=== PATIENT | male | born 1955 | race Caucasian/White ===

== ENCOUNTER → 2018-04-04 08:09 | Outpatient (CLI) | payer BC, SELFPAY ==
--- NOTE | 2018-04-04 15:11 | PFTCOMP ---
COMPLETE PULMONARY FUNCTION TEST INTERPRETATION Brief HPI: Patient is a 62 year old male, currently under the care of myself, who presents to [facility] for complete pulmonary function tests secondary to diagnosis of COPD. Respiratory therapist reports good effort and reproducible results. Interpretation: Forced expiration spirometry shows a moderate large airways obstructive ventilatory defect with an FEV1 of 74% predicted. There is no significant bronchodilator response by ATS criteria. Spirograms are of good quality and plateau slowly, indicating slowly emptying areas of the lungs. The respiratory flow volume loop shows decreased expiratory flow rates at all lung volumes consistent with airway obstruction. Lung volumes by body plethysmography show a normal total lung capacity at 7.77 L, 104% predicted. All other lung volumes are within normal limits. Diffusion capacity by carbon monoxide is normal at 83% predicted. The airway resistance is elevated. Compared to previous pulmonary function tests from 04/06/2017, there has been no significant change. Impression: Irreversible moderate large airways obstructive ventilatory defect with no significant private branch exchange service advisor the last year.
--- NOTE | 2018-04-04 15:14 | PFTCOMP_ITS ---
COMPLETE PULMONARY FUNCTION TEST INTERPRETATION Brief HPI: Patient is a 62 year old male, currently under the care of myself, who presents to [facility] for complete pulmonary function tests secondary to diagnosis of COPD. Respiratory therapist reports good effort and reproducible results. Interpretation: Forced expiration spirometry shows a moderate large airways obstructive ventilatory defect with an FEV1 of 74% predicted. There is no significant bronchodilator response by ATS criteria. Spirograms are of good quality and plateau slowly, indicating slowly emptying areas of the lungs. The respiratory flow volume loop shows decreased expiratory flow rates at all lung volumes consistent with airway obstruction. Lung volumes by body plethysmography show a normal total lung capacity at 7.77 L, 104% predicted. All other lung volumes are within normal limits. Diffusion capacity by carbon monoxide is normal at 83% predicted. The airway resistance is elevated. Compared to previous pulmonary function tests from 04/06/2017, there has been no significant change. Impression: Irreversible moderate large airways obstructive ventilatory defect with no significant plant changer the last year.
== END ==
PROVIDERS: Referring Provider Nurse Practitioner Acute Care; Visit Provider Nurse Practitioner Acute Care
DX: J44.9 Chronic obstructive pulmonary disease, unspecified (principal)
CPT/HCPCS: 94060; 94726; 94729

== ENCOUNTER → 2019-01-16 | Outpatient (CLI) | payer BC, SELFPAY ==
[2018-10-26 08:42] VITALS: BMI 26.4
[2019-01-16 10:37] LABS: Absolute Lymphocyte Count 1.85 X10^3/ul (0.83-4.51); Absolute Neutrophil Count 3.1 X10^3/uL (2.0-7.7); Basophil# 0.02 X10^3/uL; Basophil% 0.3 % (0-1); Eosinophils% 1.7 % (0-5); Hematocrit 46.7 % (40-54); Hemoglobin 15.7 g/dl (13.0-16.5); Lymphocyte # 1.85 X10^3/ul (4.0); Mean Corp Hgb Conc 33.6 g/gl (32-36); Mean Corpuscular Hgb 30.6 pg (27.0-32.0); Mean Platelet Vol. 10.2 fl (6.2-12.0); Monocyte% 12.1 % (0-10); Neutrophil # 3.11 X10^3/uL (2.7-7.7); Neutrophil % 53.7 % (47-70); Platelet Count 218 K/mm3 (150-450); RBC Distribution Width CV 12.9 % (11.6-14.6); RBC Distribution Width SD 42.9 fl (35.1-43.9); Red Blood Count 5.13 M/mm3 (4.6-6.2); White Blood Count 5.8 K/mm3 (4.4-11.0)
[2019-01-16 10:38] LABS: POSITIVE COUNT NO; POSITIVE DIFFERENTIAL NO; POSITIVE MORPHOLOGY NO
[2019-01-16 10:44] LABS: International Normalized Ratio 1.1; Prothrombin Time (Protime)PT. 13.6 SECONDS (11.7-14.9)
[2019-01-16 10:45] LABS: Partial Thromboplast Time 32.3 Seconds (24.1-36.2)
[2019-01-16 11:09] LABS: ALB/GLOB Ratio 1.1 RATIO (0.9-2.4); AST(SGOT) 25 U/L (15-37); Alanine Aminotransfer ALT/SGPT 42 U/L (16-61); Albumin, Serum 4.1 g/dL (3.2-5.0); Alkaline Phosphatase 55 U/L (45-117); Anion Gap 7 (5-15); BUN 20 mg/dL (7-18); BUN/Creat Ratio 18.7 RATIO (10-20); Calcium,Total 9.1 mg/dL (8.5-10.1); Chloride 102 mmol/L (98-107); Creatinine, Serum 1.07 mg/dL (0.70-1.30); EST Glomerular Filtration Rate 75 mL/min (>60); Est Glom Filt Rate - Afr Amer 90 mL/min (>60); Globulin 3.7 g/dL (2.2-4.2); Glucose 97 mg/dL (74-106); Potassium 4.2 mmol/L (3.5-5.1); Protein, Total 7.8 g/dL (6.4-8.2); Sodium Level 137 mmol/L (136-145)
== END | disposition home or self-care (01) ==
LOC: MTLAB 08:55
PROVIDERS: Referring Provider Internal Medicine Gastroenterology; Visit Provider Internal Medicine Gastroenterology
DX: K74.60 Unspecified cirrhosis of liver (principal); B19.20 Unspecified viral hepatitis C without hepatic coma
CPT/HCPCS: 36415; 80053; 85025; 85610; 85730

== ENCOUNTER → 2019-03-30 | Outpatient (CLI) | payer BC, SELFPAY ==
[2018-10-26 08:42] VITALS: BMI 26.4
--- NOTE | 2019-03-31 08:18 | PFT ---
INTRODUCTION: The patient is a 63-year-old male that presents for pulmonary function studies secondary to a diagnosis of COPD. Respiratory therapy reports good patient effort. Bronchodilators were used during testing. INTERPRETATION: Forced expiration spirometry demonstrates the presence of a mild large airways obstructive ventilatory defect. There was no significant response to aerosolized bronchodilators. Spirograms are of good quality and do not plateau indicating slow emptying of the lungs. Body plethysmography was performed and reveals an elevated TLC and RV, indicative of underlying hyperinflation and air trapping. Diffusing capacity by single breath CO is preserved at 94% of predicted. IMPRESSION: Irreversible mild large airways obstructive ventilatory defect with associated hyperinflation and air trapping.
== END | disposition home or self-care (01) ==
LOC: PSN 10:02
PROVIDERS: Referring Provider Nurse Practitioner Acute Care; Visit Provider Nurse Practitioner Acute Care
DX: J44.9 Chronic obstructive pulmonary disease, unspecified (principal)
CPT/HCPCS: 94060; 94726; 94729

== ENCOUNTER → 2019-11-13 13:22 | Outpatient (CLI) | payer BC, SELFPAY ==
[2019-11-06 07:46] VITALS: BMI 27.7
== END ==
PROVIDERS: Referring Provider Nurse Practitioner Acute Care; Visit Provider Nurse Practitioner Acute Care
DX: G47.30 Sleep apnea, unspecified (principal)
CPT/HCPCS: 95806

== ENCOUNTER → 2019-12-14 13:00 | Outpatient (CLI) | payer BC, SELFPAY ==
[2019-11-06 07:46] VITALS: BMI 27.7
== END ==
PROVIDERS: Referring Provider Nurse Practitioner Acute Care; Visit Provider Nurse Practitioner Acute Care
DX: Z00.00 Encounter for general adult medical examination without abnormal findings (principal)

== ENCOUNTER → 2019-12-15 06:14 | Outpatient (CLI) | payer BC, SELFPAY ==
[2019-11-06 07:46] VITALS: BMI 27.7
== END ==
PROVIDERS: Referring Provider Nurse Practitioner Acute Care; Visit Provider Nurse Practitioner Acute Care
DX: Z00.00 Encounter for general adult medical examination without abnormal findings (principal)

== ENCOUNTER 2020-04-05 16:06 | Inpatient (IN) | payer BC, SELFPAY ==
[2020-01-09 08:08] VITALS: BMI 27.9
[2020-04-05] VITALS (7 sets, daily range): BP systolic 40–166; BP diastolic 17–105; PULSE 45–176; RESP 14–30; TEMP 36.2; O2SAT 33–100; BMI 33.2
--- NOTE | 2020-04-05 16:07 | CPS ---
pt came in full arrest with squad doing CPR, pt had LMA in until [address] Leonard intubated with good color change on CO2 detector, ET tube was secured by R.T. pt was bagged with 100% O2 via ambu bag until in [employer] where he was placed on a Ventilator with settings from Dr Godinez.
--- NOTE | 2020-04-05 16:23 | EKG12_ITS ---
Test Reason : CODE BLUE Blood Pressure : / mmHG Vent. Rate : 174 BPM Atrial Rate : 192 BPM P-R Int : 000 ms QRS Dur : 186 ms QT Int : 268 ms P-R-T Axes : 000 210 072 degrees QTc Int : 456 ms Atrial fibrillation with rapid ventricular response with premature ventricular or aberrantly conducte d complexes Right superior axis deviation Non-specific intra-ventricular conduction block Abnormal ECG Suspect severe global ischemia When compared with ECG of 19-JUN-2014 11:22, Atrial fibrillation has replaced Sinus rhythm Vent. rate has increased BY 96 BPM Questionable change in QRS duration Confirmed by TOPHER BENSON, ELIZABETH ([id number]), graphics editor RAJI ALBERTO ([id number]) on 04/17/2020 11:40:59 AM Referred By: MEHREEN Confirmed By:LENNY OBANDO MD
--- NOTE | 2020-04-05 16:24 | ED.DCSUM_ITS ---
- ER Visit Summary Date of Service: 04/05/20 Chief Complaint: V. fib arrest History of Present Illness: The patient is a 64 M history of COPD on steroids. 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 Coworker started CPR. Local signal intelligence analyst squad was called at 3:27 PM. His downtime has been around 43 minutes on arrival here. They stated when they first arrived on the scene and on their monitor patient had a V. fib arrest. They cardioverted him x1 we want the PEA. He was given a total of epinephrine IV 5 times prior to arrival. Patient was not moving or responding or talking to the squad. Once he went into PEA they had no other rhythms. His daughter is present after he arrived. She says he has no known cardiac history that she is aware of. Physical Examination: Unresponsive 64-year-old male. Esophageal airway in place. Good bilateral breath sounds. HEENT exam pupils are 2 mm bilaterally. They are not dilated. There is no signs of facial trauma. Trachea midline. Lungs clear with bagging bilaterally. Heart tachycardic 160s after the first epinephrine given in the emergency department. Abdomen soft and nontender. Nondistended. No signs of trauma. Extremities no edema. Not moving. Neurologically is not moving extremities does not respond to verbal or noxious stimuli. Test Results: Initial EKG appeared to be A. fib RVR rate of 174 with PVCs and deep symmetrical ST depression throughout. Repeat EKG was done showed a sinus tachycardia with continued ST depression. There was elevation in aVR on both EKGs. No prior EKG available for comparison. CBC showed elevated white count of 13. Hemoglobin 14. No bands. Chemistries showed a gap of 15 Emergency Department Course and Treatment: 62-year-old male presents from full cardiopulmonary arrest. Airway placed in the field and I gel. Treated with epinephrine x5 in the field. Cardioverted x1 went from V. fib to PEA. Treatment Plan: I spoke to Dr. Farris on-call for interventional cardiology. We cortex to him the EKG and he is coming in to evaluate the patient for cardiac catheterization. Daughter was present emergency department. Had long discussions with her and she knows he is very critically ill. Also my concern for his prolonged downtime if he could have an anoxic encephalopathy. She understands the severity of his illness. Disposition: Admission Impression: Acute cardiopulmonary arrest ET tube by ER Reported V. fib arrest by squad History of COPD A. fib RVR with diffuse rate dependent ischemia Critical care time 35 minutes Rule out anoxic encephalopathy due to dysrhythmia and prolonged downtime This note was generated with [employer] dictation software. It may contain incorrect words, spelling, and punctuation that were not noted in review of the chart prior to signing ED Disposition - Plan for ED Patient: Referrals: Care Physician,No Primary [Primary Care Provider] -
[2020-04-05 16:38] LABS: Hematocrit 48.9 % (40-54); Hemoglobin 14.9 g/dL (13.0-16.5); Mean Corp Hgb Conc 30.5 g/dL (32-36); Mean Corpuscular Hgb 30.3 pg (27.0-32.0); Mean Corpuscular Volume 99.4 fL (80-94); POSITIVE COUNT YES; POSITIVE MORPHOLOGY YES; Platelet Count 181 K/mm3 (150-450); RBC Distribution Width CV 13.2 % (11.6-14.6); RBC Distribution Width SD 49.1 fl (35.1-43.9); Red Blood Count 4.92 M/mm3 (4.6-6.2); White Blood Count 13.3 K/mm3 (4.4-11.0)
[2020-04-05 16:41] LABS: Differential Indicated MANUAL DIFF
[2020-04-05 16:45] LABS: International Normalized Ratio 1.3; Prothrombin Time (Protime)PT. 16.1 SECONDS (11.7-14.9)
--- NOTE | 2020-04-05 16:50 | RAD_ITS ---
STUDY: X-RAY CHEST REASON FOR EXAM: Male, 64 years old. Intubation TECHNIQUE: Frontal view of the chest COMPARISON: 09/04/14 FINDINGS: There is an endotracheal tube noted with its tip approximately 3 cm above the laly. There is an enteric tube noted with its tip in the stomach. There is no pneumothorax. There are no pleural effusions. There are interstitial and airspace opacities in the mid to upper lung guzman, right greater than left. The heart is normal in size. The visualized osseous structures are within normal limits. RAD/Chest 1 View (Portable) IMPRESSION: Satisfactory position of the support lines and tubes. Bilateral airspace and interstitial opacities, right greater than left. This may be due to infection or edema. Electronically Signed: Carl Jones, at 17:09 EDT Tel , Service support ,
[2020-04-05] MEDS: Propofol 10MG/Ml 1,000 MG/100 ML Bottle 6.1 MG CONT INF (16:54)
[2020-04-05] MEDS: fentaNYL drip 100 ML 2.5 MCG CONT INF (16:55)
[2020-04-05 16:58] LABS: Anion Gap 15 (5-15); BUN 14 mg/dL (7-18); Calcium,Total 8.7 mg/dL (8.5-10.1); Chloride 98 mmol/L (98-107); EST Glomerular Filtration Rate 36 mL/min (>60); Est Glom Filt Rate - Afr Amer 44 mL/min (>60); Glucose 289 mg/dL (74-106); Potassium 3.5 mmol/L (3.5-5.1); Sodium Level 138 mmol/L (136-145)
--- NOTE | 2020-04-05 17:26 | CM.ED ---
Social Work Responding to [employer]. Patient daughter, Elisha Jasmine arriving. Elisha reports to be next of kin for patient as patient is . Patient does have a brother, Olu Jasmine that is currently out of the area as per Elisha he travels. Support provided to Elisha throughout ED stay. Patient STEMI alert. This social psychologist escorting Elisha to family waiting room in research laboratory manager. Elisha denies need to call any other family members as Elisha has spoken to Olu already. Elisha reports to have two children that an adult is currently with. Elisha denies any further needs currently. Zhen Gonzalez MSW, PADMINI-S
[2020-04-05 17:32] LABS: Lymphocyte 36 % (19-41); Monocyte 3 % (0-10); Neutrophil-Band 1 % (0-5); Neutrophil-Segmented 60 % (47-70); Red Cell Morphology NORM C+C NORMAL (NORM C&C); Total Cells Counted 100 (MANUAL DIFF)
[2020-04-05 17:33] LABS: Platelet Estimate ADEQUATE (ADEQ)
--- NOTE | 2020-04-05 17:33 | PCM.CON.CC ---
Problem List (1) MATIAS (obstructive sleep apnea) Status: Acute Comment: Overall AHI 23.9 (2) Previous back surgery Status: Resolved (3) H/O oral surgery Status: Resolved (4) H/O adenoidectomy Status: Resolved (5) History of tonsillectomy Status: Resolved (6) H/O hernia repair Status: Resolved (7) Index finger surgery Status: Resolved (8) H/O shoulder surgery Status: Resolved (9) H/O knee surgery Status: Resolved (10) Hx of hepatitis C Status: Resolved Comment: treated, nondetectable x 3 years (11) Pulmonary asbestosis Status: Chronic (12) Stage 2 moderate COPD by GOLD classification Status: Chronic (13) Asthma, moderate persistent Status: Chronic Qualifiers: Reason for Consult Date of Consultation: 04/05/20 Reason for Consultation: Arrest History of Present Illness: The patient is a 64 year old M, with past medical history listed below, who presented [facility] on 04/05/2020 secondary to a witnessed arrest. 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 Patient had CPR started immediately and a local squad was called at 3:27 PM. Patient did not arrive to the emergency department until approximately 43 minutes later. Patient reportedly was in V. fib arrest and had received cardioversion x1 and a total of 5 doses of epinephrine. Patient reportedly was not interactive via the squad. Patient was reportedly in PEA. Patient reportedly did not have any cardiac history. On presentation to the ER, patient had an LMA in place and was unresponsive. Patient did receive CPR in the ER. EKG had shown multiple ST depressions and there was concern for an ST elevation [place]. Cardiology was notified and code was called. I arrived in the ER shortly thereafter. Patient was intubated by ER staff without complication. Patient did have some desaturations. There was some spontaneous movement noted shortly thereafter. Patient was placed on propofol and fentanyl. Chest x-ray was reviewed showing endotracheal tube was high. This was advanced 2 cm, but a repeat chest x-ray was not obtained. Chest x-ray also showed bilateral infiltrates, right greater than left. OG was in good position. Patient was personally escorted to the Radio [facility]. Patient has multiple lesions in the left circulation. Patient has had trigeminy and A. fib with RVR noted on telemetry during my evaluation. An ABG completed in the [facility] showed a significant increase in AA gradient, and permissive hypercapnia with a predominant metabolic gradient. Patient was continued on AC 14 500 100% and 5 of PEEP. Patient's daughter was in the ER, but I did not have the opportunity to discuss further history. Review of previous documentation shows that he has been seen in our office previously. Patient has COPD with asthma overlap and is treated with triple therapy at this time. Review of office documentation shows patient also has obstructive sleep apnea treated with BiPAP 15/5 centimeters of water and a high residual. Patient is on triple therapy with Trelegy as a baseline. Patient is also on albuterol as needed. This was not routinely used per the last office documentation in January. Unable to obtain a review of systems at this time secondary to acute condition. Past Medical History Past Medical History (Chronic Problems): Chronic Problems (Last Reviewed 01/09/20 @ 09:26 by Mel Drew LABORATORY AIDE, LABORATORY AIDE-C) Arthritis (Chronic) Pulmonary asbestosis (Chronic) Stage 2 moderate COPD by GOLD classification (Chronic) Asthma, moderate persistent (Chronic) Medical History: Medical History (Last Reviewed 01/09/20 @ 09:26 by Mel Drew LABORATORY AIDE, LABORATORY AIDE-C) Arthritis (Chronic) M19.90 Hx of hepatitis C (Resolved) Z86.19 treated, nondetectable x 3 years Pulmonary asbestosis (Chronic) J61 Bronchitis (Acute) J40 Stage 2 moderate COPD by GOLD classification (Chronic) J44.9 Asthma, moderate persistent (Chronic) J45.40 Allergies acetaminophen [From Vicodin] Allergy (Unknown, Verified 01/09/20 09:11) Unknown hydrocodone [From Vicodin] Allergy (Unknown, Verified 01/09/20 09:11) Unknown Codeine Allergy (Unknown, Uncoded 01/09/20 09:11) Unknown Home Medications: Ambulatory Orders Medication Instructions Recorded albuterol sulfate 90 mcg/actuation 2 puff INHALATION Q6H PRN 10/07/17 aerosol inhaler aspirin 81 mg tablet,delayed 81 mg PO QDAY tab 10/07/17 release lisinopril 20 mg tablet 20 mg PO QDAY 10/07/17 fluticasone fur. 100 mcg-umeclid 1 inh INHALATION QDAY #3 device 05/04/19 62.5 mcg-vilant 25 mcg inhalat.powder Surgical History: Surgical History (Last Reviewed 01/09/20 @ 09:26 by Mel Drew LABORATORY AIDE, LABORATORY AIDE-C) Previous back surgery (Resolved) Z98.890 H/O oral surgery (Resolved) Z98.890 H/O adenoidectomy (Resolved) Z90.89 History of tonsillectomy (Resolved) Z90.89 H/O hernia repair (Resolved) Z98.890, Z87.19 Index finger surgery (Resolved) H/O shoulder surgery (Resolved) Z98.890 H/O knee surgery (Resolved) Z98.890 ankle surgery (Resolved) Smoking Status: Unknown if ever smoked Tobacco Use: Chew Review of Systems Unable to obtain accurate/complete ROS d/t: See HPI Objective: Chest x-ray was personally reviewed. Endotracheal tube is high, but this has been advanced. Patient has bilateral infiltrates. There is a predominance of the RV noted and RA. - Physical Exam Vitals/I&O's: Vital Signs Temp Pulse Resp BP Pulse Ox 36.2 C L 116 H 26 H 98/58 L 96 04/05/20 16:07 04/05/20 17:00 04/05/20 17:00 04/05/20 17:00 04/05/20 17:00 Oxygen Delivery Method Ambu-Bag Weight: 102 kg Body Mass Index (BMI) 33.2 General: - - Unresponsive on my evaluation. Appears stated age. Obese. Good vent synchrony noted. HEENT: Atraumatic, PERRLA, EOMI, Normocephalic, - - Pupils were 2 mm during my evaluation. Oral: Moist Mucosa, No Gingival or Mucosal Lesions/ Ulcerations Neck: Supple, No JVD, No Nodes Lungs: No wheeze, Diminished, Rales, Rhonchi, - - Symmetric expansion Cardiovascular: Normal S1, Normal S2, No murmurs, Irregular Rate, No rub noted, No Gallop, Tachycardic Abdomen: Bowel Sounds Present, Soft, Non Tender, Non-Distended Extremities: No clubbing, No cyanosis, No edema, - - Patient with an IO placed in both tibia. These have been removed. Skin: No breakdown, Rash Present - Medial aspect of the left foot. Not associated with fluctuance or erythema. Musculoskeletal: No Tenderness to Palpation of Joints or Extremities Lymphatic: No Cervical, Supraclavicular, or Inguinal Adenopathy Neurological: - - Patient with gag and cough reflexes. Localizes to painful stimulus. Psych/Mental Status: Flat Affect Laboratory Results 04/05/20 16:10: WBC 13.3 H, RBC 4.92, Hgb 14.9, Hct 48.9, MCV 99.4 H, MCH 30.3, MCHC 30.5 L, RDW Std Deviation 49.1 H, RDW Coeff of Nelson 13.2, Plt Count 181, MPV 10.0, Neut % (Auto) Not Reportable, Absolute Neuts (auto) Pending, Absolute Lymphs (auto) Pending, Total Counted 100, Neutrophils % (Manual) 60, Band Neutrophils % 1, Lymphocytes % (Manual) 36, Monocytes % (Manual) 3, Platelet Estimate ADEQUATE, RBC Morphology NORM C+C 04/05/20 16:10: PT 16.1 H, INR 1.3, APTT 40.0 H 04/05/20 16:10: Sodium 138, Potassium 3.5, Chloride 98, Carbon Dioxide 25.0, Anion Gap 15, BUN 14, Creatinine 2.00 H, Estim Creat Clear Calc 38.30, Est GFR (MDRD) Af Amer 44 L, Est GFR (MDRD) Non-Af 36 L, BUN/Creatinine Ratio 7.0 L, Glucose 289 H, Calcium 8.7, Troponin I 0.053 H 04/05/20 16:10: Lactic Acid 11.0 H* Clinical Impression(s) from Imaging Studies Chest X-Ray 04/05/20 16:50 IMPRESSION: Satisfactory position of the support lines and tubes. Bilateral airspace and interstitial opacities, right greater than left. This may be due to infection or edema. Electronically Signed: Carl Robert, at 17:09 EDT Tel , Service support , Assessment/Plan RECOMMENDATIONS: 1. Continue with current vent settings 2. Await response to cardiac intervention 3. Possibly initiate pressor therapy 4. Wean oxygen as tolerated 5. Hold on Lasix for now 6. Consider empiric Unasyn for aspiration given prolonged resuscitation IMPRESSIONS: 1. Acute hypoxic respiratory failure secondary to cardiac arrest Bilateral infiltrates noted on chest x-ray. Clinical suspicion for pulmonary contusion versus congestive heart failure secondary to ST elevation [place]. Patient is currently in the [facility] and receiving intervention. Await response to therapy. Patient is on 5 of PEEP and 100% at this time with a significantly decreased PaO2 indicating high AA gradient. If this were to persist after cardiac intervention, increase in PEEP may be necessary. Would hold off on Lasix therapy for now given patient's acute kidney injury and recent dye load secondary to cardiac catheterization. Patient does have a setting of COPD/asthma overlap syndrome and would benefit from IV steroids given mechanical manipulation associated with intubation, CPR. Patient can also have empiric therapy for aspiration as there was significant posterior pharynx secretions noted. 2. ST elevation [place]/nonsustained V. tach/new onset A. fib with RVR No history of coronary artery disease, but initial review of initial pictures in the Radio Message [facility] showed significant multivessel disease. Patient is on an ANITA inhibitor at baseline, but no beta-rosas or statin. Defer to cardiology. Patient developed nonsustained V. tach while in the Radio Message [facility]. Unclear if this is secondary to the acute ST elevation [place] versus cardiac manipulation versus electrolyte abnormalities. Amiodarone has been given. 3. Acute kidney injury Baseline creatinine appears to be approximately 0.8-0.9. Patient currently had 2. Clinical suspicion for prerenal etiology. Patient is also receiving of dye load from the cardiac Radio Message Router. Patient may benefit from short-term IV hydration to avoid acute kidney injury secondary to contrast-induced nephropathy. No indication for renal replacement therapy at this time, but will have to watch electrolytes closely. Addendum 1900: While in the [employer] [facility], patient had a V. tach arrest. Patient did have to receive CPR. Patient received epinephrine and amiodarone during the code. Following ROSC, patient was noted to have significant increase in peak pulmonary pressures with bubba hemoptysis. Suctioning was marginally effective. PEEP was increased to 14 with 100% FiO2. Repeat ABG showed significant worsening and acidosis from both respiratory and metabolic sources. Tidal volumes were not increased, but blood pressure did improve. Patient was monitored until completion of the catheterization. TIME: 80 minutes critical care time spent addressing patient's acute hypoxic respiratory failure, acute kidney injury, ST elevation [place], review of all data and collaboration with care team (3:30 PM to 5:50 PM, 6 PM to 7 PM) Procedures: 58611 Critial Care Addl 30 Min 9xxxx: [id number] Critical care first hour
[2020-04-05 17:34] LABS: Absolute Lymphocyte Count 4.79 X10^3/uL (0.83-4.51); Absolute Neutrophil Count 8.1 X10^3/uL (2.0-7.7)
[2020-04-05 17:35] LABS: Bedside Glucose 291 mg/dL (70-110)
--- NOTE | 2020-04-05 17:36 | EKG12_ITS ---
Test Reason : CODE BLUE Blood Pressure : / mmHG Vent. Rate : 131 BPM Atrial Rate : 131 BPM P-R Int : 184 ms QRS Dur : 096 ms QT Int : 292 ms P-R-T Axes : 000 202 202 degrees QTc Int : 431 ms Sinus tachycardia with frequent Premature ventricular complexes Right superior axis deviation Pulmonary disease pattern Incomplete right bundle branch block Marked ST abnormality, possible inferior subendocardial injury Marked ST abnormality, possible anterolateral subendocardial injury Abnormal ECG Suspect global severe ischemia When compared with ECG of 05-APR-2020 16:14, MANUAL COMPARISON REQUIRED, DATA IS UNCONFIRMED Confirmed by TOPHER BENSON, ELIZABETH ([id number]), state editor RAJI ALBERTO ([id number]) on 04/17/2020 11:41:28 AM Referred By: MEHREEN Confirmed By:LENNY OBANDO MD
[2020-04-05 18:20] LABS: Base Excess -14 mmol/L (-2 to +2); Bicarbonate 17.2 mmol/L (22-26); Blood Gas Specimen Type ART; PO2 84 mmHG (75-100); SO2 89 % (95-99); Total Carbon Dioxide 19 mmol/L; pCO2 65.7 mmHg (35-45); pH 7.03 (7.35-7.45)
--- NOTE | 2020-04-05 18:27 | CM.ED ---
Social Work Responding to [employer] in dental laboratory worker. Support provided to patient daughter, Elisha. Pulse obtained per Dr. Nicolas and plan is to continue with heart cath and placement of stents. Elisha voicing understanding to current situation. Dr. Nicolas did update Elisha on patient current status. Active support and listening provided. Zhen Gonzalez MSW, PADMINI-S
--- NOTE | 2020-04-05 18:57 | HP.PCM_ITS ---
Problem List (1) Cardiopulmonary arrest Status: Acute (2) STEMI (ST elevation myocardial infarction) Status: Acute Qualifiers: Involved coronary artery: other coronary artery Qualified Code(s): I21.29 - ST elevation (STEMI) myocardial infarction involving other sites (3) Acute respiratory failure with hypoxia Status: Acute (4) Pulmonary hemorrhage Status: Acute (5) MATIAS (obstructive sleep apnea) Status: Acute Comment: Overall AHI 23.9 (6) Hx of hepatitis C Status: Chronic Comment: treated, nondetectable x 3 years (7) Pulmonary asbestosis Status: Chronic (8) Stage 2 moderate COPD by GOLD classification Status: Chronic (9) Asthma, moderate persistent Status: Chronic Qualifiers: Asthma complication type: unspecified Qualified Code(s): J45.40 - Moderate persistent asthma, uncomplicated (10) Lactic acidosis Status: Acute History of Present Illness Date of Admission: 04/05/20 Chief Complaint: Cardiopulmonary arrest. Acute STEMI History was taken from review of chart and also from the patient's daughter. 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 Patient was reported in his usual state of health this morning. He was working in the school district, on the field when he had a syncopal episode. His coworker started CPR. The local desk attendant squad were called at 3:27 PM. Patient had about 45 minutes of CPR prior to arrival to the emergency department. He was found to have V. fib arrest. He was cardioverted and subsequently had PEA. He received 5 rounds of IV epinephrine. He was unconscious at the time of being seen. MEHUL PONCE was called in the emergency department, he was intubated in the ED. His initial EKG showed A. fib with RVR of 176 with PVCs. There were deep ST segment depression throughout and ST segment elevation in aVR. Acute STEMI was called. She was taken to the cardiac Ophthalmic Medical Assistant for emergent coronary angiography. Patient was found to have a subtotal occlusion of the left main and circumflex. He underwent thrombectomy and MITCH placement from the left circumflex back into the left main. Patient had a V. tach arrest. CPR was started. He received epinephrine and amiodarone bolus. He had return of spontaneous circulation, after which she was noted to have significant increase in peak pulmonary pressures with overt hemoptysis. He was maintained on PEEP of 14 with FiO2 100%. He had an 80% lesion in the proximal LAD that was stented with drug-eluting stent. ABG showed pH of 7.03, PCO2 65.7, PO2 was 84%. Admitting blood work showed WBC of 13.3, hemoglobin 14.9, platelet count 181, INR 1.3, BMP was significant for BUN of 14, creatinine of 2.0, creatinine was 1.07. Lactic acid was 11.0, troponin was 0.053. Patient arrived from the cardiac Ophthalmic Medical Assistant at 1935. Blood pressure was 41/28 from the arterial line. A CODE BLUE was called at 1941. This was the patient's third CODE BLUE. CPR was started. Patient received several rounds of epinephrine. Patient's daughter and his brother were at the bedside. Patient remained in PEA/asystole. He received a total of 2 amps of bicarbonate, 2 g of magnesium IV bolus, an extra 150 mg of amiodarone and amiodarone 300 mg. Of note is that patient continued to have pulmonary hemorrhage with low oxygen saturations throughout the third code. Patient's family were updated during the code. The code was run from 19:41 until 19:59 when the family - daughter and brother at bedside, asked that we stop code. Past Medical History Past Medical History (Chronic Problems): Chronic Problems (Last Reviewed 01/09/20 @ 09:26 by Mel Drew [employer]CAST[employer], [employer]) Arthritis (Chronic) Hx of hepatitis C (Chronic) treated, nondetectable x 3 years Pulmonary asbestosis (Chronic) Stage 2 moderate COPD by GOLD classification (Chronic) Asthma, moderate persistent (Chronic) Medical History: Medical History (Last Reviewed 01/09/20 @ 09:26 by Mel Drew [employer], [employer]CAST[employer]) Arthritis (Chronic) M19.90 Hx of hepatitis C (Chronic) Z86.19 treated, nondetectable x 3 years Pulmonary asbestosis (Chronic) J61 Bronchitis (Acute) J40 Stage 2 moderate COPD by GOLD classification (Chronic) J44.9 Asthma, moderate persistent (Chronic) J45.40 Allergies acetaminophen [From Vicodin] Allergy (Unknown, Verified 01/09/20 09:11) Unknown hydrocodone [From Vicodin] Allergy (Unknown, Verified 01/09/20 09:11) Unknown Codeine Allergy (Unknown, Uncoded 01/09/20 09:11) Unknown Home Medications: Ambulatory Orders Medication Instructions Recorded albuterol sulfate 90 mcg/actuation 2 puff INHALATION Q6H PRN 10/07/17 aerosol inhaler aspirin 81 mg tablet,delayed 81 mg PO QDAY tab 10/07/17 release lisinopril 20 mg tablet 20 mg PO QDAY 10/07/17 fluticasone fur. 100 mcg-umeclid 1 inh INHALATION QDAY #3 device 05/04/19 62.5 mcg-vilant 25 mcg inhalat.powder Surgical History: Surgical History (Last Reviewed 01/09/20 @ 09:26 by Mel Drew [employer], [employer]) Previous back surgery (Resolved) Z98.890 H/O oral surgery (Resolved) Z98.890 H/O adenoidectomy (Resolved) Z90.89 History of tonsillectomy (Resolved) Z90.89 H/O hernia repair (Resolved) Z98.890, Z87.19 Index finger surgery (Resolved) H/O shoulder surgery (Resolved) Z98.890 H/O knee surgery (Resolved) Z98.890 ankle surgery (Resolved) Surgical History: adenoidectomy, tonsillectomy, - - Status post ankle surgery, history of knee surgery, shoulder surgery, index finger surgery, hernia repair, Psychiatric History: No pertinent psych hx Lives: With Family Smoking Status: Unknown if ever smoked Tobacco Use: Chew Alcohol: None Drugs: None - *Family History Maternal Family History: Family History (Last Reviewed 01/09/20 @ 09:26 by Mel Drew [employer], [employer]) Father Heart disease Mother Heart disease History Items: Heart Disease, Hypertension Paternal Family History: Family History (Last Reviewed 01/09/20 @ 09:26 by Mel Drew NP, [employer]) Father Heart disease Mother Heart disease History Items: Heart Disease Review of Systems Unable to obtain accurate/complete ROS d/t: Unable to obtain as patient was unconscious VTE Information - Inpt Only VTE Present on Admission: No VTE Pharm Prophylaxis ordered?: Yes Patient Problems: Active and Suspected Problems (Last Reviewed 01/09/20 @ 09:26 by Mel mansfield [employer], [employer]) Cardiopulmonary arrest (Acute) STEMI (ST elevation myocardial infarction) (Acute) Acute respiratory failure with hypoxia (Acute) Pulmonary hemorrhage (Acute) Lactic acidosis (Acute) - Physical Exam Vitals/I&O's: Vital Signs Temp Pulse Resp BP Pulse Ox 97.1 F L 121 H 27 H 98/58 L 92 04/05/20 16:07 04/05/20 17:39 04/05/20 17:39 04/05/20 17:00 04/05/20 17:39 Oxygen Flow Rate (L/min) 15 Oxygen Delivery Method Ambu-Bag Weight: 102 kg Body Mass Index (BMI) 33.2 General: - - Unconscious, seen actively draining cold, no pulse, complexion looks ashen, intubated, bright red frothy bleed in the ET tube, actively being suctioned HEENT: Atraumatic, PERRLA, EOMI, Normocephalic Lungs: - - Being Ambu bag Cardiovascular: - - No pulse Abdomen: Bowel Sounds Present, Soft, Distended Extremities: Edema - Bilateral pedal edema +1 Neurological: - - Unconscious Psych/Mental Status: Normal Affect, Appropriate Laboratory Results 04/05/20 16:10: WBC 13.3 H, RBC 4.92, Hgb 14.9, Hct 48.9, MCV 99.4 H, MCH 30.3, MCHC 30.5 L, RDW Std Deviation 49.1 H, RDW Coeff of Nelson 13.2, Plt Count 181, MPV 10.0, Neut % (Auto) Not Reportable, Absolute Neuts (auto) 8.1 H, Absolute Lymphs (auto) 4.79 H, Total Counted 100, Neutrophils % (Manual) 60, Band Neutrophils % 1, Lymphocytes % (Manual) 36, Monocytes % (Manual) 3, Diff Path Review November, Platelet Estimate ADEQUATE, RBC Morphology NORM C+C 04/05/20 16:10: PT 16.1 H, INR 1.3, APTT 40.0 H 04/05/20 16:10: Sodium 138, Potassium 3.5, Chloride 98, Carbon Dioxide 25.0, Anion Gap 15, BUN 14, Creatinine 2.00 H, Estim Creat Clear Calc 38.30, Est GFR (MDRD) Af Amer 44 L, Est GFR (MDRD) Non-Af 36 L, BUN/Creatinine Ratio 7.0 L, Glucose 289 H, Calcium 8.7, Troponin I 0.053 H 04/05/20 16:10: Lactic Acid 11.0 H* 04/05/20 16:34: POC Glucose 291 H 04/05/20 18:14: Specimen Type ART, pH 7.03 L*, Bicarbonate Actual 17.2 L, Total CO2 19, Base Excess -14 L, O2 Saturation 89 L, ABG pCO2 65.7 H, ABG pO2 84 Current Medications Amiodarone HCl 360 mg/ (Dextrose) 200 mls @ 33.333 mls/hr CONT INF .Q6H GAVIN Stop: 04/06/20 00:59 Amiodarone HCl 360 mg/ (Dextrose) 200 mls @ 16.667 mls/hr CONT INF .Q12H GAVIN Stop: 04/06/20 18:59 Assessment/Plan All Active Problems (Last Reviewed 01/09/20 @ 09:26 by Mel Drew [employer], [employer]- C) Cardiopulmonary arrest (Acute) STEMI (ST elevation myocardial infarction) (Acute) Acute respiratory failure with hypoxia (Acute) Pulmonary hemorrhage (Acute) Lactic acidosis (Acute) MATIAS (obstructive sleep apnea) (Acute) Previous back surgery (Resolved) H/O oral surgery (Resolved) H/O adenoidectomy (Resolved) History of tonsillectomy (Resolved) H/O hernia repair (Resolved) Index finger surgery (Resolved) H/O shoulder surgery (Resolved) H/O knee surgery (Resolved) ankle surgery (Resolved) Bronchitis (Acute) 1. Acute hypoxic respiratory failure due to cardiac arrest/acute pulmonary hemorrhage, status post intubation Pulmonology consulted 2. Acute pulmonary hemorrhage likely secondary to pulmonary contusion, pulmonology consulted Patient was on mechanical ventilation 3. Acute STEMI/acute cardic arrest, status post 3 episodes of aggressive resuscitation Culprit was left main stenosis. Status post drug-eluting stent 4. Nonsustained V. tach/new onset A. fib/remained on amiodarone drip 5. MARILY/lactic acidosis/COPD/asthma/obesity or complicated care Time of was 1958 Time spent at the patient bedside was from 18:30-18:55 and from 19:41-19:59. Time was spent collaborating with the critical care, cardiology team initially in the cardiac cath lab tech and later on running the code in the intensive care unit. Discussed extensively on phone with cardiology and critical care teams. Inpatient E&M: 59267 Init Hosp L3 Procedures: 16238 Prolonged Physician INPT
--- NOTE | 2020-04-05 19:04 | PCM.CONS.C ---
Reason for Consult Date of Consultation: 04/05/20 Reason for Consultation: cardiac arrest History of Present Illness: The patient is a 64 M history of COPD on steroids. Reportedly was working at [place] of field when he had a syncopal episode. Coworker started CPR. Local track hoe operator squad was called at 3:27 PM. His downtime has been around 43 minutes on arrival here. They stated when they first arrived on the scene and on their monitor patient had a V. fib arrest. They cardioverted him x1 we want the PEA. He was given a total of epinephrine IV 5 times prior to arrival. Patient was not moving or responding or talking to the squad. Once he went into PEA they had no other rhythms. His daughter is present after he arrived. She says he has no known cardiac history that she is aware of. EKG in the ER showed diffuse ST depressions and ST elevation in aVR. Patient was not responding and there was a question whether he would have adequate neurologic recovery after this event. However he continued to have a stable rhythm and blood pressure. We then decided to proceed with emergent coronary angiography. Coronary angiography revealed subtotal occlusion of the left main and circumflex. He underwent thrombectomy and drug-eluting stent placement from the circumflex back into the left main. He had an 80% lesion in the proximal LAD that was stented with drug-eluting stent as well. PTCA alone was performed of the ostium of the LAD prior to and after stent deployment in the left main extending into the circumflex. Patient is hemodynamically stable at the end of the procedure. He will be admitted to the ICU for further management of his cardiac arrest. Review of systems: Review of systems cannot be obtained as patient is intubated and unresponsive Past Medical History Allergies/Adverse Reactions: Allergies acetaminophen [From Vicodin] Allergy (Unknown, Verified 01/09/20 09:11) Unknown hydrocodone [From Vicodin] Allergy (Unknown, Verified 01/09/20 09:11) Unknown Codeine Allergy (Unknown, Uncoded 01/09/20 09:11) Unknown Home Medications: Ambulatory Orders Medication Instructions Recorded albuterol sulfate 90 mcg/actuation 2 puff INHALATION Q6H PRN 10/07/17 aerosol inhaler aspirin 81 mg tablet,delayed 81 mg PO QDAY tab 10/07/17 release lisinopril 20 mg tablet 20 mg PO QDAY 10/07/17 fluticasone fur. 100 mcg-umeclid 1 inh INHALATION QDAY #3 device 05/04/19 62.5 mcg-vilant 25 mcg inhalat.powder Past Medical History (Chronic Problems): Chronic Problems (Last Reviewed 01/09/20 @ 09:26 by Mel Drew [employer], [employer]ER [employer]C) Arthritis (Chronic) Pulmonary asbestosis (Chronic) Stage 2 moderate COPD by GOLD classification (Chronic) Asthma, moderate persistent (Chronic) Smoking Status: Unknown if ever smoked Tobacco Use: Chew Objective: Vital Signs Temp Pulse Resp BP Pulse Ox 97.1 F L 121 H 27 H 98/58 L 92 04/05/20 16:07 04/05/20 17:39 04/05/20 17:39 04/05/20 17:00 04/05/20 17:39 Oxygen Flow Rate (L/min) 15 Oxygen Delivery Method Ambu-Bag Weight: 224 lb 13.944 oz Body Mass Index (BMI) 33.2 General: - - Intubated, unresponsive Cardiovascular: Regular Rhythm Abdomen: Soft Extremities: No edema Skin: No Rashes 04/05/20 16:10: WBC 13.3 H, RBC 4.92, Hgb 14.9, Hct 48.9, MCV 99.4 H, MCH 30.3, MCHC 30.5 L, Plt Count 181, MPV 10.0, Neut % (Auto) Not Reportable, Absolute Neuts (auto) 8.1 H, Total Counted 100, Neutrophils % (Manual) 60, Band Neutrophils % 1, Lymphocytes % (Manual) 36, Monocytes % (Manual) 3 04/05/20 16:10: PT 16.1 H, INR 1.3, APTT 40.0 H 04/05/20 16:10: Sodium 138, Potassium 3.5, Chloride 98, Carbon Dioxide 25.0, Anion Gap 15, BUN 14, Creatinine 2.00 H, Est GFR (MDRD) Af Amer 44 L, Est GFR (MDRD) Non-Af 36 L, BUN/Creatinine Ratio 7.0 L, Glucose 289 H, Calcium 8.7, Troponin I 0.053 H 04/05/20 16:10: Lactic Acid 11.0 H* 04/05/20 18:14: pH 7.03 L*, Bicarbonate Actual 17.2 L, Base Excess -14 L, O2 Saturation 89 L, ABG pCO2 65.7 H, ABG pO2 84 Rhythm: EKG: ECHO: Stress Test: Cardiac Cath: PCI: CT Surgery: Holter monitor: EPS: PPM: CXR: Chest CT Scan: Assessment/Plan 1. Cardiac arrest: Secondary to significant left main stenosis. This was treated with drug-eluting stents. We will keep the patient on dual antiplatelet therapy. Patient was in cardiac arrest for a long time. If he ends up having neurologic recovery then he will need PCI of the RCA and possibly of the mid circumflex. His LVEDP is elevated. If there is difficulty oxygenating him then we can give him Lasix.
[2020-04-05] MEDS: Amiodarone 360 MG in Dextrose 5% Viaflo Bag 192.8 ML 33.3 MG CONT INF (19:20)
--- NOTE | 2020-04-05 20:20 | CM.ED ---
Social Work Responding to 3rd Code Blue. Confirming with nursing staff on ICU that patient family is able to come to floor due to current code. Escorted patient family to patient room. Patient brother, Dominic now present. Patient daughter, Elisha continues to be present. Active support and listening provided throughout Code Blue. Family discussing with medical team/doctor. Decided to have CPR discontinued. Patient passing. Continued support provided. Zhen HAN, PADMINI-S
[2020-04-05 20:32] LABS: Reflex Lactate? Y
--- NOTE | 2020-04-05 21:25 | NURSING ---
arrived to ICU at 1935 from medical laboratory technologist, BP noted 41/28 from arterial line, hospitalist paged, no pulse noted at 1941 and code blue called- see code blue documentation.
--- NOTE | 2020-04-05 21:47 | CPS ---
Pt . Verbal extubation order given by Dr. Arroyo
--- NOTE | 2020-04-05 21:54 | PCM.DEATH ---
Preliminary Cause of Acute cardiopulmonary arrest/acute pulmonary hemorrhage Date of Admission: 04/05/20 Date of : 04/05/20 - Principle Diagnosis Acute pulmonary hemorrhage, likely secondary to pulmonary contusion Acute STEMI s/p stents Nonsustained V. tach/new onset A. 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 Patient was reported in his usual state of health on the morning of admission. He works in a local school district, and was working on the field when he had a syncopal episode. His coworker started CPR. The local deputy sheriff court services squad were called at 3:27 PM. Patient had about 45 minutes of CPR prior to arrival to the emergency department. He was found to have V. fib arrest in the field. He was cardioverted and subsequently had PEA. He received 5 rounds of IV epinephrine. MEHUL PONCE was called in the emergency department, he was intubated in the ED. His initial EKG showed A. fib with RVR of 176 with PVCs. There were deep ST segment depression throughout and ST segment elevation in aVR. Acute STEMI was called. He was taken to the cardiac Commercial Installer for emergent coronary angiography. Patient was found to have a subtotal occlusion of the left main and circumflex. He underwent thrombectomy and MITCH placement from the left circumflex back into the left main. During cardiac cath, patient had a 2nd code blue - V. tach arrest, s/p cardioversion. CPR was continued. He received epinephrine and amiodarone bolus. He had return of spontaneous circulation, after which he was noted to have significant increase in peak pulmonary pressures with overt/bubba bright red, frothy hemoptysis. He was maintained on PEEP of 14 with FiO2 100%. He had an 80% lesion in the proximal LAD that was also stented with drug-eluting stent. Patient arrived from the cardiac Commercial Installer at 1935. Blood pressure was 41/28 from the arterial line. A 3rd CODE BLUE was called at 1941. This was the patient's third CODE BLUE. CPR was started. Patient received several rounds of epinephrine. Patient's daughter and his brother were at the bedside. Patient remained in PEA/asystole. Throughout the code, patient was noted to have continued pulmonary hemorrhage with low oxygen saturations. Patient's family were kept updated during the code. The code was run from 19:41 until 19:59 when the family - daughter and brother at bedside, asked that the code be stopped. Time of was 19:59. Inpatient E&M: [id number] Disch Hosp
--- NOTE | 2020-04-05 22:34 | NURSING ---
per laboratory coordinator staff- amiodarone 150 mg bolus given in laboratory coordinator, amiodarone 360 mg gtt started at 33.33 ml/hr. Pt arrived to floor with amiodarone 360 mg running at 33.33 ml/hr in LAC.
[2020-04-06 15:25] LABS: Base Excess -8 mmol/L (-2 to +2); Bicarbonate 19.5 mmol/L (22-26); Blood Gas Specimen Type ART; PO2 115 mmHG (75-100); SO2 98 % (95-99); Total Carbon Dioxide 21 mmol/L; pCO2 43.8 mmHg (35-45); pH 7.26 (7.35-7.45)
--- NOTE | 2020-04-08 07:22 | CRPHASE1 ---
Patient Communication PHII Cardiac Rehab Discussed with Patient:: No - Patient ; see Summary Guide to Cardiac Rehab Given to Patient:: No - Patient ; see Summary Cardiac Rehab Facility Choice List Given to Patient:: No - Patient ; see Summary Refer Phase II Cardiac Rehab:: No Risk Factors/Lifestyle Family History: Family History (Last Reviewed 01/09/20 @ 09:26 by Mel Drew FOUNDRY HAND, FOUNDRY HAND-C) Father Heart disease Mother Heart disease Cardiac Rehabilitation Info Cardiac Rehabilitation Program Information: Cardiac Rehabilitation is important for patients like you who are recovering from a heart problem. Cardiac rehabilitation programs are recognized as integral to the continued care of the patient with coronary heart disease. The cardiac rehabilitation program is designed to optimize a patient's physical, psychological, and social functioning. Health childbirth and infant care teacher work in cardiac rehabilitation programs and assist you with getting the treatments you need to get stronger and healthier - like exercise, healthy eating habits, and medications. Cardiac rehabilitation has been show to help people with heart problems live longer and have better life enjoyment than people who do not go to cardiac rehabilitation. Please contact the Cardiac Rehabilitation Program at [facility] at in two weeks if you have not heard from them.
[2020-04-08 12:14] LABS: Pathologist Review Reviewed
--- NOTE | 2020-04-10 13:52 | CL.I_ITS ---
Patient Name: TEX LAURENT Study Date: 04/05/2020 Performing: Alejandro Farris MD Ht: 69 inches 175 cm : 1955 Wt: 225.2 lbs 102 kg Age: 64 Gender: male BSA: 2.17 PROCEDURE(S) PERFORMED [id number] W OR WO PTCA, SINGLE CORONARY ARTERY [id number] W OR WO PTCA, SINGLE CORONARY ARTERY CLINICAL PROFILE AND CO-MORBIDITIES Indications: Cardiac arrrest due to Ventricular fibrillation. Procedure was a salvage attempt Heart Failure: None Stress/Imaging Stress/Image Study Performed: No CAD Presentations: Other: cardiac arrest CONCLUSIONS Severe CAD as described. Elevated LVEDP. Successful thrombectomy and MITCH to LM, LCx and pLAD with PTC A alone of ostial LAD RECOMMENDATIONS DESCRIPTION OF PROCEDURE The patient arrived to the procedure lab. The risks and benefits of the procedure as well as a full d escription of our services here and lack of surgical backup were fully explained to the patient and/o r their significant other prior to the catheterization. The Timeout was completed, verifying the shirley ect patient and procedure. The patient's procedural site was prepped and draped in the usual fashion. Local anesthetic was given subcutaneously to right radial region with Lidocaine 2%. Using a modified Seldinger technique, arterial access was obtained via the right radial artery, a 6Fr sheath was inse rted.. Left Coronary Artery selective angiography was performed in multiple views using a 5 Fr. JL3. 5 catheter. LV to AO pullback pressures were then recorded. Right Coronary Artery selective angiograp hy was then performed in multiple views using a 5 Fr. JR 4 catheterThe images were reviewed and optio ns discussed. A decision was then made to proceed with an Intervention, IVUS or other adjunct procedure. XB3 Guide catheter was inserted and engaged into the LCA. BMW Guide wire was advanced to the LAD. Priority One inserted Pass # 1 BMW Guide wire was advanced to the Circumflex. 3x12 Emerge Balloon ca theter was inserted. Balloon catheter was advanced across lesion in the circumflex, ostial. PTCA ball oon inflated at 6 atms for 6 secs. PTCA balloon inflated at 8 atms for 10 secs. Angiogram performed p ost balloon dilatation. Balloon catheter was repositioned to additional lesion in the LAD, ostial. PT CA balloon inflated at 6 atms for 10 secs. 3.5x38 Synergy Drug Eluting stent was advanced across the lesion in the circumflex, ostial. Angiogram performed post stent deployment. Angiogram performed post stent deployment. 3.5x15 NC Emerge Balloon catheter was inserted. Balloon catheter was advanced acro ss lesion in the circumflex, ostial. PTCA balloon inflated at 12 atms for 8 secs. PTCA balloon inflat ed at 16 atms for 10 secs. 2.5x20 Emerge Balloon catheter was inserted. Balloon catheter was advanced across lesion in the LAD, ostial. PTCA balloon inflated at 6 atms for 10 secs. PTCA ball oon inflated at 6 atms for 26 secs. 1.5x15 Emerge Balloon catheter was inserted. Balloon catheter was advanced across lesion in the LAD, ostial. PTCA balloon inflated at 6 atms for 12 secs. 3x38 Synergy Drug Eluting stent was inserted. 2.5x15 Emerge Balloon catheter was inserted. PTCA balloon inflated at 6 atms for 12 secs. 3x12 Emerge Balloon catheter was inserted. Balloon catheter was advanced acros s lesion in the LAD, ostial. 3x15 Emerge Balloon catheter was inserted. Balloon catheter was advanced across lesion in the circumflex, ostial. Angiogram performed post balloon dilatation. The arterial sheath was sutured in place with heparinized normal saline under pressure CORONARY ANGIOGRAPHY DOMINANCE: Right Dominant LEFT MAIN: 95 % Stenosis LEFT ANTERIOR DESCENDING ARTERY: PROX LAD: 80 % Stenosis CIRCUMFLEX ARTERY: OSTIAL CIRC: 99 % Stenosis MID CIRC: 60 % Stenosis RIGHT CORONARY ARTERY: MID RCA: 80 % Stenosis INTERVENTION INFORMATION LESION SITE: Circumflex (Ostial) Lesion Complexity: High/C, chronic total occlusion: No, lesion at bifurcation: Yes, thrombus present: Yes, lesion length: 30 mm, culprit lesion: Yes, Previously treated lesion: No Pre Stenosis: 99 % Pre intervention HARDIK flow: 2 PROCEDURE: Thrombectomy, Drug Eluting Stent with pre and post dilatation The stent was deployed extending into the left main to cover the stenosis in it. The LAD was jailed b y the stent. The stent struts were recrossed and PTCA of the ostial portion of the LAD was performed. Pt. went into V fib and then asystole during the procedure and CPR was performed for about 8 mins. H e then came back into sinus rhythm and had a normal BP without pressors at the end of the procedure Post Stenosis: 0 % Post intervention HARDIK flow: 3 Lesion Devices: Key .014 BMW Rhododendron Straight 190cm Terumo Priority One Aspiration Catheter Cardinal 6 Fr XB3.0 100cm Guide Catheter Bernabe Sci EMERGE MR 3.00x12 BALLOON Bernabe Sci Synergy MR MITCH 3.50x38 Bernabe Sci NC EMERGE MR 3.50x15 BALLOON Bernabe Sci EMERGE MR 3.00x15 BALLOON LESION SITE: LAD (Ostial) Lesion Complexity: High/C, chronic total occlusion: No, chronic total occlusion: No, lesion at bifurc ation: No, thrombus present: No, lesion length: 25 mm, culprit lesion: Yes, Previously treated lesion : No Pre Stenosis: 80 % Pre intervention HARDIK flow: 2 PROCEDURE: Drug Eluting Stent with pre dilatation. Post Stenosis: 0 % Post intervention HARDIK flow: 3 Lesion Devices: Cardinal 6 Fr XB3.0 100cm Guide Catheter Key .014 BMW Rhododendron Straight 190cm Bernabe Sci EMERGE MR 3.00x12 BALLOON Bernabe Sci EMERGE MR 1.50x15 BALLOON Bernabe Sci EMERGE MR 2.50x15 BALLOON Bernabe Sci EMERGE MR 2.50x20 BALLOON LESION SITE: LAD (Proximal) Lesion Complexity: High/C, chronic total occlusion: No, lesion at bifurcation: Yes, thrombus present: Yes, culprit lesion: Yes, Previously treated lesion: No Pre Stenosis: 70 % Pre intervention HARDIK flow: 2 PROCEDURE: Balloon Angioplasty 20 % Post intervention HARDIK flow: 3 Lesion Devices: Cardinal 6 Fr XB3.0 100cm Guide Catheter Key .014 BMW Rhododendron Straight 190cm Bernabe Sci Synergy MR MITCH 3.00x38 COMPLICATIONS No Complications PROCEDURE MEDICATIONS Oxygen: 100 % FiO2 via ventilator. See Resp Record for Settings Amiodarone 150 mg/min 04/05/2020 17:58:24 Brilinta 180 mg PO 04/05/2020 19:19:38 Amiodarone 360 mg to run 1mg/min at 33.3cc/hr started en route to ICU @ 04/05/2020 19:25:00 Heparin given IA 04/05/2020 17:19:54 Heparin 6000 unit(s) IV 04/05/2020 17:28:55 Verapamil 2.5mg, Ntg 100mcgs, 3000 units of Heparin given IA 04/05/2020 17:19:54 SUMMARY OF HEMODYNAMIC DATA Time AIR REST ECG 17:14:41 AO 80/47 (62) SA 17:28:07 AO 69/48 (58) 17:39:52 AO 121/87 (103) 18:14:07 LV 141/6, 30 18:34:46 LV 136/4, 28 18:34:53 LVp 198/-122, 0 18:35:31 AOp 97/33 (60) 18:35:36 Signed By Alejandro Farris MD On 04/10/2020 13:51:56 Alejandro Farris MD
== END 2020-04-05 19:59 | DRG 246 ==
LOC: ED 16:49 → ICU 19:33
PROVIDERS: Admitting Provider Specialist; Emergency Provider Emergency Medicine; Visit Provider Specialist
DX: I46.9 Cardiac arrest, cause unspecified (principal); I21.9 Acute myocardial infarction, unspecified; J96.01 Acute respiratory failure with hypoxia; R04.89 Hemorrhage from other sites in respiratory passages; N17.9 Acute kidney failure, unspecified; E87.2 Acidosis; I47.2 Ventricular tachycardia; I48.91 Unspecified atrial fibrillation; J44.9 Chronic obstructive pulmonary disease, unspecified; G47.33 Obstructive sleep apnea (adult) (pediatric); J61 Pneumoconiosis due to asbestos and other mineral fibers; M19.90 Unspecified osteoarthritis, unspecified site; F17.220 Nicotine dependence, chewing tobacco, uncomplicated; Z86.19 Personal history of other infectious and parasitic diseases
CPT/HCPCS: 31500; 36591; 36600; 51702; 71045; 80048; 82803; 82962; 83605; 84484; 85025; 85610; 85730; 92928; 92950; 93005; 93458; 94002; 94799; 99285; C1757; J7030; Q9967; A4216; C1725; C1769; C1874; C1887; C1894; C9600; J1327; J3010; J3475